=== PATIENT | male | born 1970 | race Two or more races ===

== ENCOUNTER 2018-10-25 17:51 | Emergency (ER) | payer OTHER ==
[~2018-10-25] VITALS: Ht 162.6 cm; Wt 70.3 kg
== END 2018-10-25 21:30 | disposition home or self-care (01) ==
LOC: ER 17:51
DX: S46.811A Strain of other muscles, fascia and tendons at shoulder and upper arm level, right arm, initial encounter (principal); M25.511 Pain in right shoulder; X50.3XXA Overexertion from repetitive movements, initial encounter; Y93.89 Activity, other specified; Y92.69 Other specified industrial and construction area as the place of occurrence of the external cause; Y99.8 Other external cause status